=== PATIENT | male | born 1945 | race Caucasian/White ===

== ENCOUNTER 2017-01-08 12:39 | Emergency (ER) | payer MEDICARE, MEDICAID ==
[~2017-01-08] VITALS: Ht 188 cm; Wt 63.5 kg
[~2017-01-08 12:39] MED LIST: AMAN100C12 PO; ASPI-231 PO; CITA-73 PO; FLUO-125 PO; MIRT30TA3 PO; ROPI0.5T18 PO; ZOLP10TA6 PO; [UNRECOGNIZED DRUG - CODE] PO
[2017-01-08 13:02] VITALS: BP 124/82
== END 2017-01-08 15:12 | disposition home or self-care (01) ==
LOC: EDUNIT# 12:39 → ER 12:39
DX: M54.5 Low back pain (principal); I50.9 Heart failure, unspecified; I48.91 Unspecified atrial fibrillation; J44.9 Chronic obstructive pulmonary disease, unspecified; R51 Headache; F17.210 Nicotine dependence, cigarettes, uncomplicated; E11.9 Type 2 diabetes mellitus without complications; Z91.81 History of falling; Z88.0 Allergy status to penicillin; Z88.8 Allergy status to other drugs, medicaments and biological substances
CPT/HCPCS: 70450; 72100

== ENCOUNTER 2017-02-10 06:44 | Inpatient (IN) | payer MEDICARE, MEDICAID ==
[~2017-02-10] VITALS: Ht 177.8 cm; Wt 58.7 kg
[2017-02-10] MEDS ORDERED: SODIUM CHLORIDE 0.9% 1,000 ML IV ONE (07:14)
[2017-02-10 08:04] LABS: Urine RBC None Seen /hpf (0 - 3)
[2017-02-10 08:32] LABS: Urine Bilirubin Negative (Negative); Urine Blood Negative /uL (Negative); Urine Color Yellow (Yellow); Urine Glucose Normal (Normal); Urine Ketone Negative (Negative); Urine Nitrite Negative (Negative); Urine Urobilinogen Normal (Negative)
[2017-02-10] MEDS ORDERED: DEXTROSE (50%) 50ML SYRG IV PRN (10:30)
[2017-02-10] MEDS ORDERED: TEMAZEPAM 15 MG CAP PO PRN (10:45)
[2017-02-10] MEDS ORDERED: ONDANSETRON HCL 4 MG/2 ML VIAL IV PRN (10:45)
[2017-02-10] MEDS ORDERED: DOCUSATE SOD 100 MG CAP PO PRN (10:45)
[2017-02-10] MEDS ORDERED: ACETAMINOPHEN 325 MG TAB PO PRN (10:45)
[2017-02-10] MEDS ORDERED: MORPHINE SULF INJ 2 MG/ML SYRINGE 1ML IV PRN ×2 (10:45)
[2017-02-10] MEDS ORDERED: NITROGLYCERIN 0.4 MG SL TAB SL PRN (10:45)
[2017-02-10] MEDS: InsuLIN REG 1unit/0.01ml Soln (100units/ml) SC SCH ×3 (11:30→22:00)
[2017-02-10] MEDS: MULTIPLE VITAMIN TAB PO SCH (11:41)
[2017-02-10] MEDS: ZINC SULFATE 220 MG CAP PO SCH (11:41)
[2017-02-10] MEDS: FAMOTIDINE 20 MG TAB PO SCH ×2 (11:41→21:58)
[2017-02-10] MEDS: ASCORBIC ACID 500 MG TAB PO SCH ×2 (11:41→21:58)
[2017-02-10] MEDS: ACCU-CHEK COMFORT CURVE STRIP VI SCH ×3 (11:42→21:59)
[2017-02-10 13:00] VITALS: BP 161/77
[2017-02-10] MEDS ORDERED: FLUoxetine HCL 20 MG CAP PO ONE (14:15)
[2017-02-10] MEDS ORDERED: DIGOXIN 0.125 MG TAB PO ONE (14:15)
[2017-02-10] MEDS: HYDROcodone-ACET 5/325MG TAB PO PRN ×2 (14:35→19:49)
[2017-02-10] MEDS: SODIUM CHLOR 0.9% PF (SALINE LOCK) 10ML VIAL IV SCH ×2 (14:43→21:59)
[2017-02-10 17:00] VITALS: BP 146/79
[2017-02-10] MEDS: TAMSULOSIN HYDROCHLORIDE 0.4 MG CAP PO SCH (17:05)
[2017-02-10 19:58] VITALS: BP 146/79
[2017-02-10 20:56] LABS: Urine Bilirubin Negative (Negative); Urine Blood Negative /uL (Negative); Urine Color Yellow (Yellow); Urine Glucose Normal (Normal); Urine Ketone Negative (Negative); Urine Nitrite Negative (Negative); Urine RBC <1 /hpf (0 - 3); Urine Squamous Epithelial Cell FEW /hpf (<5); Urine Urobilinogen Normal (Negative)
[2017-02-10] MEDS: MIRTAZAPINE 30 MG TAB PO SCH (21:58)
[2017-02-10] MEDS: ATORVASTATIN 20 MG TAB PO SCH (21:58)
[2017-02-10 22:04] VITALS: BP 128/74
[2017-02-11 05:00] VITALS: BP 109/68
[2017-02-11] MEDS: SODIUM CHLOR 0.9% PF (SALINE LOCK) 10ML VIAL IV SCH ×3 (06:00→21:38)
[2017-02-11] MEDS: InsuLIN REG 1unit/0.01ml Soln (100units/ml) SC SCH ×4 (06:26→21:45)
[2017-02-11] MEDS: ACCU-CHEK COMFORT CURVE STRIP VI SCH ×4 (06:26→21:45)
[2017-02-11] MEDS: HYDROcodone-ACET 5/325MG TAB PO PRN ×2 (06:29→19:47)
[2017-02-11 09:02] VITALS: BP 135/65
[2017-02-11] MEDS: FAMOTIDINE 20 MG TAB PO SCH ×2 (09:26→21:38)
[2017-02-11] MEDS: ZINC SULFATE 220 MG CAP PO SCH (09:26)
[2017-02-11] MEDS: MULTIPLE VITAMIN TAB PO SCH (09:26)
[2017-02-11] MEDS: DIGOXIN 0.125 MG TAB PO SCH (09:27)
[2017-02-11] MEDS: FLUoxetine HCL 20 MG CAP PO SCH (09:27)
[2017-02-11] MEDS: ASCORBIC ACID 500 MG TAB PO SCH ×2 (09:27→21:38)
[2017-02-11 12:30] VITALS: BP 126/65
[2017-02-11 15:20] LABS: Albumin 3.8 g/dL (3.4-5.0); BUN/Creatinine Ratio 24.5; Basophils # (auto) 0 uL; Basophils % (auto) 0.3 % (0.0-2.0); Calcium 9.1 mg/dL (8.5-10.1); Eosinophils # (auto) 0.3 uL; Eosinophils % (auto) 2.9 % (0.0-7.0); Hematocrit 48.2 % (41.0-53.0); Hemoglobin 15.9 g/dL (13.5-17.5); Lymphocytes # (auto) 1.7 uL; Mean Corpuscular Hemoglobin 29.1 pg (28.0-32.0); Mean Corpuscular Volume 88.1 fL (80.0-100.0); Mean Platelet Volume 13.9 fL (7.4-10.4); Monocytes # (auto) 0.7 uL; Monocytes % (auto) 8.4 % (0.0-12.0); Neutrophils % (auto) 68.4 % (37.0-80.0); Platelet Count (auto) 156 10^3/uL (140-450); Potassium 4.3 mmol/L (3.5-5.1); Red Cell Distribution Width 13.6 % (11.6-16.0); SUSPECT VIEW TRANSMISSION; White Blood Cell 8.7 10^3/uL (4.4-10.8)
[2017-02-11 15:24] LABS: Bilirubin, Total 0.3 mg/dL (0.2-1.0); Total Protein 7.2 g/dL (6.4-8.2)
[2017-02-11 16:07] LABS: Platelet Estimate Adequate
[2017-02-11 16:08] LABS: Giant Platelets Few; RBC Morphology Normal
[2017-02-11] MEDS: TAMSULOSIN HYDROCHLORIDE 0.4 MG CAP PO SCH (17:37)
[2017-02-11 17:41] VITALS: BP 130/70
[2017-02-11 20:00] VITALS: BP 124/75
[2017-02-11 21:30] VITALS: BP 124/75
[2017-02-11] MEDS: ATORVASTATIN 20 MG TAB PO SCH (21:38)
[2017-02-11] MEDS: MIRTAZAPINE 30 MG TAB PO SCH (21:38)
[2017-02-12 05:00] VITALS: BP 124/72
[2017-02-12] MEDS: ACCU-CHEK COMFORT CURVE STRIP VI SCH ×4 (06:08→22:22)
[2017-02-12] MEDS: InsuLIN REG 1unit/0.01ml Soln (100units/ml) SC SCH ×4 (06:08→22:00)
[2017-02-12] MEDS: SODIUM CHLOR 0.9% PF (SALINE LOCK) 10ML VIAL IV SCH ×3 (06:11→22:00)
[2017-02-12 07:40] VITALS: BP 120/70
[2017-02-12] MEDS: ZINC SULFATE 220 MG CAP PO SCH (10:20)
[2017-02-12] MEDS: FLUoxetine HCL 20 MG CAP PO SCH (10:20)
[2017-02-12] MEDS: DIGOXIN 0.125 MG TAB PO SCH (10:20)
[2017-02-12] MEDS: FAMOTIDINE 20 MG TAB PO SCH ×2 (10:21→22:22)
[2017-02-12] MEDS: MULTIPLE VITAMIN TAB PO SCH (10:21)
[2017-02-12] MEDS: ASCORBIC ACID 500 MG TAB PO SCH ×2 (10:21→22:22)
[2017-02-12 12:30] VITALS: BP 120/70
[2017-02-12 13:21] VITALS: BP 126/73
[2017-02-12 17:13] VITALS: BP 125/77
[2017-02-12] MEDS: HYDROcodone-ACET 5/325MG TAB PO PRN (18:20)
[2017-02-12] MEDS: TAMSULOSIN HYDROCHLORIDE 0.4 MG CAP PO SCH (18:20)
[2017-02-12 22:00] VITALS: BP 136/82
[2017-02-12] MEDS: ATORVASTATIN 20 MG TAB PO SCH (22:22)
[2017-02-12] MEDS: MIRTAZAPINE 30 MG TAB PO SCH (22:22)
[2017-02-13 05:30] VITALS: BP 126/70
[2017-02-13] MEDS: ACCU-CHEK COMFORT CURVE STRIP VI SCH ×2 (06:11→11:57)
[2017-02-13] MEDS: SODIUM CHLOR 0.9% PF (SALINE LOCK) 10ML VIAL IV SCH (06:11)
[2017-02-13] MEDS: InsuLIN REG 1unit/0.01ml Soln (100units/ml) SC SCH ×2 (06:11→11:30)
[2017-02-13 07:40] VITALS: BP 133/74
[2017-02-13 07:51] VITALS: BP 133/74
[2017-02-13] MEDS: FLUoxetine HCL 20 MG CAP PO SCH (10:08)
[2017-02-13] MEDS: ASCORBIC ACID 500 MG TAB PO SCH (10:08)
[2017-02-13] MEDS: ZINC SULFATE 220 MG CAP PO SCH (10:08)
[2017-02-13] MEDS: FAMOTIDINE 20 MG TAB PO SCH (10:09)
[2017-02-13] MEDS: MULTIPLE VITAMIN TAB PO SCH (10:09)
[2017-02-13] MEDS: DIGOXIN 0.125 MG TAB PO SCH (10:10)
[2017-02-13] MEDS ORDERED: ZIN220C PO (11:14)
[2017-02-13] MEDS ORDERED: MULTTAB99 PO (11:14)
[2017-02-13] MEDS ORDERED: TAM04C PO (11:14)
[2017-02-13 14:25] VITALS: BP 135/60
== END 2017-02-13 16:58 | DRG 604 ==
LOC: EDBD 06:44 → ER 06:44 → TELE 06:45 → TELE-WESTW 12:10 → TELE-EAST 18:31
PROVIDERS: ADMIT Internal Medicine; ATTEND Nurse Practitioner Acute Care
DX: S00.83XA Contusion of other part of head, initial encounter (principal); G93.41 Metabolic encephalopathy; I48.92 Unspecified atrial flutter; D68.69 Other thrombophilia; I50.30 Unspecified diastolic (congestive) heart failure; W06.XXXA Fall from bed, initial encounter; W01.0XXA Fall on same level from slipping, tripping and stumbling without subsequent striking against object, initial encounter; I48.0 Paroxysmal atrial fibrillation; I11.0 Hypertensive heart disease with heart failure; F32.9 Major depressive disorder, single episode, unspecified; G20 Parkinson's disease; J44.9 Chronic obstructive pulmonary disease, unspecified; N40.0 Benign prostatic hyperplasia without lower urinary tract symptoms; F10.10 Alcohol abuse, uncomplicated; E11.9 Type 2 diabetes mellitus without complications; I48.91 Unspecified atrial fibrillation; F17.210 Nicotine dependence, cigarettes, uncomplicated; Z88.0 Allergy status to penicillin; Z88.8 Allergy status to other drugs, medicaments and biological substances; Z86.73 Personal history of transient ischemic attack (TIA), and cerebral infarction without residual deficits; Y92.009 Unspecified place in unspecified non-institutional (private) residence as the place of occurrence of the external cause; Z85.820 Personal history of malignant melanoma of skin; Z83.3 Family history of diabetes mellitus; Z82.49 Family history of ischemic heart disease and other diseases of the circulatory system
CPT/HCPCS: 36415; 70450; 70486; 71010; 72125; 80053; 81001; 82962; 85025; 93005